=== PATIENT | male | born 1980 | race African-American/Black ===

== ENCOUNTER 2017-02-18 11:10 | Emergency (ER) | payer SELFPAY ==
[2017-02-18] MEDS ORDERED: Ketorolac Tromethamine 30 MG/ML VIAL ONE (12:29)
== END 2017-02-18 12:39 | disposition home or self-care (01) ==
LOC: ERS 11:10
DX: L72.3 Sebaceous cyst (principal); G40.909 Epilepsy, unspecified, not intractable, without status epilepticus; F17.210 Nicotine dependence, cigarettes, uncomplicated; Z79.899 Other long term (current) drug therapy
CPT/HCPCS: 96372; J1885

== ENCOUNTER 2017-09-05 22:51 | Emergency (ER) | payer SELFPAY ==
[2017-09-06] MEDS ORDERED: Lidocaine 1% w/Epinephrine 1:100K 20 ML VIAL ONE (00:41)
== END 2017-09-06 01:11 | disposition home or self-care (01) ==
LOC: ERS 22:51
DX: L02.214 Cutaneous abscess of groin (principal); G40.909 Epilepsy, unspecified, not intractable, without status epilepticus; F17.210 Nicotine dependence, cigarettes, uncomplicated
CPT/HCPCS: 10060; 99406; J2001

== ENCOUNTER 2017-09-06 22:14 | Emergency (ER) | payer SELFPAY ==
[2017-09-06 23:20] LABS: ALT (SGPT) 19 U/L (8-55); AST (SGOT) 19 U/L (5-34); Albumin 3.8 g/dL (3.5-5.0); Alkaline Phosphatase 129 U/L (40-150); Anion Gap 10 mmol/L (10-20); BUN (Urea Nitrogen) 15 mg/dL (8.9-20.6); Bilirubin, Total 0.4 mg/dL (0.2-1.2); Calc. Creatinine Clearance 0 mL/min (70-130); Carbon Dioxide 26 mmol/L (22-29); Chloride 107 mmol/L (98-107); Estimated GFR-MDRD Greater than 90; Glucose 123 mg/dL (70-105); Potassium 3.8 mmol/L (3.5-5.1); Protein, Total 6.8 g/dL (6.0-8.3); Sodium 139 mmol/L (136-145)
[2017-09-06 23:43] LABS: Band 2 % (5-11); Eosinophils 2 % (0-10); Hemoglobin 12.7 g/dL (14.0-18.0); Lymphocytes 11 % (21-51); MDiff Complete? YES; Mean Platelet Volume 6.5 fL (7.4-10.4); Metamyelocyte 1 % (0-0); Monocytes 10 % (0-10); Neutrophil 72 % (42-75); PLT Morphology Comment Appears Adequate; Platelet Count 260 thou/uL (130-400); RBC Distribution Width 12.9 % (11.5-14.5); RBC Morphology Normal; Reactive Lymphocytes 2 % (0-10); Red Blood Cell (RBC) Count 4.39 mill/uL (4.70-6.10); White Blood Cell (WBC) Count 21.6 thou/uL (4.8-10.8)
[2017-09-07] MEDS ORDERED: HYDROcodone/Acetaminophen 10/325 mg Tablet ONE (00:30)
[2017-09-07] MEDS ORDERED: Ketorolac Tromethamine 30 MG/ML VIAL ONE (00:30)
[2017-09-07] MEDS ORDERED: Lidocaine 1% w/Epinephrine 1:100K 20 ML VIAL ONE (00:30)
[2017-09-07] MEDS ORDERED: Lorazepam 2 MG/ML VIAL ONE (00:55)
[2017-09-07 01:10] LABS: Bilirubin Negative (Negative); Blood, Urine Negative (Negative); Clarity CLEAR (Clear); Glucose, Urine (Dipstick) Negative (Negative); Leukocyte Negative (Negative); Nitrite Negative (Negative); Protein, Urine (Dipstick) Negative (Neg-Trace); Specific Gravity, Urine 1.014 (1.002-1.036)
== END 2017-09-07 01:50 | disposition home or self-care (01) ==
LOC: ERS 22:14
DX: N49.2 Inflammatory disorders of scrotum (principal); G40.909 Epilepsy, unspecified, not intractable, without status epilepticus; F17.210 Nicotine dependence, cigarettes, uncomplicated
CPT/HCPCS: 36415; 54700; 80053; 81003; 85025; 96365; 96375; J1885; J2001; J2060; J3370

== ENCOUNTER 2018-01-01 16:41 | Emergency (ER) | payer SELFPAY ==
[2018-01-01] MEDS ORDERED: Dexamethasone 4 mg/ml Vial ONE (17:44)
== END 2018-01-01 17:50 | disposition home or self-care (01) ==
LOC: ERS 16:41
DX: M54.5 Low back pain (principal); G40.909 Epilepsy, unspecified, not intractable, without status epilepticus; F17.210 Nicotine dependence, cigarettes, uncomplicated
CPT/HCPCS: 99283; J1100

== ENCOUNTER 2018-01-11 14:16 | Emergency (ER) | payer SELFPAY ==
[2018-01-11 14:45] LABS: #Basophils 0.1 thou/uL (0.0-0.2); #Eosinphils 0.3 thou/uL (0.0-0.7); #Lymphocytes 2.7 thou/uL (1.20-3.40); #Monocytes 0.8 thou/uL (0.11-0.59); %Eosinophils 3.1 % (0.0-10.0); %Lymphocytes 30.4 % (21.0-51.0); %Monocytes 8.9 % (0.0-10.0); %Neutrophils 56.7 % (42.0-75.0); Hemoglobin 13.4 g/dL (14.0-18.0); Mean Corpuscular HGB CONC 32.3 g/dL (32.0-36.0); Mean Corpuscular Volume 86.5 fL (78.0-98.0); Mean Platelet Volume 6.8 fL (7.4-10.4); Platelet Count 258 thou/uL (130-400); RBC Distribution Width 12.4 % (11.5-14.5); Red Blood Cell (RBC) Count 4.78 mill/uL (4.70-6.10); White Blood Cell (WBC) Count 8.8 thou/uL (4.8-10.8)
[2018-01-11 15:05] LABS: ALT (SGPT) 13 U/L (8-55); AST (SGOT) 23 U/L (5-34); Albumin 3.9 g/dL (3.5-5.0); Alkaline Phosphatase 101 U/L (40-150); Anion Gap 11 mmol/L (10-20); BUN (Urea Nitrogen) 15 mg/dL (8.9-20.6); Bilirubin, Total 0.5 mg/dL (0.2-1.2); Calc. Creatinine Clearance 0 mL/min (70-130); Carbon Dioxide 21 mmol/L (22-29); Chloride 108 mmol/L (98-107); Estimated GFR-MDRD Greater than 90; Globulin 2.8 g/dL (2.4-3.5); Glucose 88 mg/dL (70-105); Potassium 4.1 mmol/L (3.5-5.1); Protein, Total 6.7 g/dL (6.0-8.3); Sodium 136 mmol/L (136-145)
[2018-01-11 15:09] LABS: CKMB 4.7 ng/mL (0-6.6); Troponin I Less than 0.010 ng/mL (< 0.028)
--- NOTE | 2018-01-11 15:32 | RAD ---
CHEST 1 VIEW: HISTORY: Chest pain. COMPARISON: 02/23/14. FINDINGS: Cardiac silhouette is magnified by projection. Pulmonary vasculature is unremarkable. Mediastinum i s midline. No lobar consolidation or evidence of pneumothorax. IMPRESSION: No active cardiopulmonary abnormalities are demonstrated. POS: [facility]
[2018-01-11] MEDS ORDERED: Ketorolac Tromethamine 30 MG/ML VIAL ONE (16:21)
== END 2018-01-11 17:19 | disposition home or self-care (01) ==
LOC: ERS 14:16
DX: R07.89 Other chest pain (principal); G40.909 Epilepsy, unspecified, not intractable, without status epilepticus; F17.210 Nicotine dependence, cigarettes, uncomplicated
CPT/HCPCS: 71045; 80053; 82553; 84484; 85025; 93005; 96374; J1885

== ENCOUNTER 2018-04-29 00:01 | Emergency (ER) | payer SELFPAY ==
[2018-04-29] MEDS ORDERED: Ketorolac Tromethamine 30 MG/ML VIAL ONE (02:04)
== END 2018-04-29 02:14 | disposition home or self-care (01) ==
LOC: ERS 00:01
DX: K13.0 Diseases of lips (principal); F17.210 Nicotine dependence, cigarettes, uncomplicated; G40.909 Epilepsy, unspecified, not intractable, without status epilepticus
CPT/HCPCS: 10061; 96372; J1885

== ENCOUNTER 2019-01-26 02:02 | Observation (INO) | payer SELFPAY ==
[2019-01-26] MEDS ORDERED: Ondansetron PF 4 MG/2 ML Vial ONE (02:19)
[2019-01-26] MEDS ORDERED: Lorazepam 2 MG/ML VIAL ONE (02:37)
[2019-01-26] MEDS ORDERED: Fosphenytoin Sodium 1,200 MG in Sodium Chloride 0.9% 50 ML IVPB SCH (02:45)
[2019-01-26 03:08] LABS: #Basophils 0.1 thou/uL (0.0-0.2); #Eosinphils 0.3 thou/uL (0.0-0.7); #Lymphocytes 3.1 thou/uL (1.20-3.40); #Monocytes 0.8 thou/uL (0.11-0.59); #Neutrophils 5.2 thou/uL (1.40-6.50); %Basophils 0.8 % (0.0-1.0); %Eosinophils 3.6 % (0.0-10.0); %Lymphocytes 32.3 % (21.0-51.0); %Monocytes 8.3 % (0.0-10.0); Hemoglobin 13.8 g/dL (14.0-18.0); Mean Corpuscular HGB CONC 32.9 g/dL (32.0-36.0); Mean Corpuscular Hemoglobin 28.3 pg (27.0-31.0); Mean Corpuscular Volume 85.9 fL (78.0-98.0); Mean Platelet Volume 6.4 fL (7.4-10.4); Platelet Count 263 thou/uL (130-400); RBC Distribution Width 12.3 % (11.5-14.5); White Blood Cell (WBC) Count 9.5 thou/uL (4.8-10.8)
[2019-01-26 03:35] LABS: ALT (SGPT) 13 U/L (8-55); AST (SGOT) 17 U/L (5-34); Albumin 3.7 g/dL (3.5-5.0); Alkaline Phosphatase 109 U/L (40-150); Anion Gap 9 mmol/L (10-20); BUN (Urea Nitrogen) 17 mg/dL (8.9-20.6); Bilirubin, Total 0.2 mg/dL (0.2-1.2); CK (CPK) 116 U/L (30-200); Calc. Creatinine Clearance 0 mL/min (70-130); Calcium 8.9 mg/dL (7.8-10.44); Carbon Dioxide 25 mmol/L (22-29); Chloride 106 mmol/L (98-107); Estimated GFR-MDRD 74; Globulin 2.7 g/dL (2.4-3.5); Glucose 118 mg/dL (70-105); Lipase 45 U/L (8-78); Potassium 3.9 mmol/L (3.5-5.1); Protein, Total 6.4 g/dL (6.0-8.3); Sodium 136 mmol/L (136-145)
[2019-01-26] MEDS ORDERED: Ondansetron ODT 4 MG TAB PO PRN (07:40)
[2019-01-26] MEDS ORDERED: Zolpidem Tartrate 5 MG TAB PO PRN (07:40)
--- NOTE | 2019-01-26 07:40 | CT ---
PRELIMINARY REPORT/[facility]/EMERGENCY AFTER HOURS PROCEDURE: PROCEDURE INFORMATION: Exam: CT Head Without Contrast Exam date and time: 01/26/2019 2:45 AM Clinical history: 38 years old, male; Patient HX: 38m brought in via EMS for multiple tonic-clonic se izures at home, witnessed by . Admits to h/o epilepsy since childhood TECHNIQUE: Imaging protocol: Computed tomography of the head without contrast. COMPARISON: No relevant prior studies available. FINDINGS: Brain: Normal. No hemorrhage. Unremarkable white matter. No mass effect. Ventricles: Normal. No ventriculomegaly. Bones/joints: Unremarkable. No acute fracture. Sinuses: Visualized sinuses are unremarkable. No fluid levels. Mastoid air cells: Visualized mastoid air cells are well aerated. Soft tissues: Unremarkable. IMPRESSION: No acute intracranial abnormality. Thank you for allowing us to participate in the care of your patient. Dictated and Authenticated by: Haile Padgett MD 01/26/2019 2:53 AM Central Time ([place] & [place]) FINAL REPORT EMERGENCY AFTER HOURS BRAIN CT WITHOUT IV CONTRAST: Date: 01/26/19 Time: 0246 hours IMPRESSION: No significant acute intracranial process. No mass or bleed. Stable from 07/11/15. Report in agreement with preliminary report given on-call by [facility]. POS: OFF
--- NOTE | 2019-01-26 08:26 | HP ---
PRIMARY CARE PHYSICIAN: No PCP. The patient was referred by the [facility] to the hospitalist program for seizure. The patient has had a seizure disorder since he was 2 years old. His last seizure was 1 month ago. He did not seek medical care. Last night, he had a headache, sharp pain in his chest later. He apparently had a seizure. He is currently oriented to person. He thinks he is in [place]. He gives the time is April of 2010. PAST MEDICAL HISTORY: Seizure disorder since 2 years old, history of heart murmur. MEDICATIONS: Currently, on no medicines. Quit his seizure medicines approximately 6 months ago because it made him feel like a zombie. ALLERGIES: NOTHING. PAST SURGICAL HISTORY: None. FAMILY HISTORY: He had an uncle, who was , who had alcoholic seizures. He has a cousin with epilepsy. SOCIAL HISTORY: . Smokes a half a pack a day. Drinks occasional alcohol. Admits to [facility]. REVIEW OF SYSTEMS: GENERAL: He has frequent headaches. No dizziness or fainting. EYES: He has blurred vision at times. No double vision. No flashing lights. EAR, NOSE, AND THROAT: No ear pain or drainage. No nasal bleeding. No trouble swallowing. CARDIAC: He had a sharp chest pain last night, brief. No orthopnea or paroxysmal nocturnal dyspnea. RESPIRATION: No cough, wheezing, or asthma. GASTROINTESTINAL: No nausea, vomiting, abdominal pain, diarrhea, or constipation. GENITOURINARY: No hematuria or dysuria. MUSCULOSKELETAL: No pain or swelling in his arms or legs. NEUROLOGICAL: History of seizures. SKIN: No bruising, bleeding, or rash. HEME/LYMPH: No tender or swollen lymph nodes under his arms, neck, or his groin. PSYCHIATRIC: No history of anxiety, depression, or psychiatric disease. PHYSICAL EXAMINATION: GENERAL: He is alert, pleasant, confused as to location. He thinks he is in [place]. He is actually in [place] and definitely confused as to time. His only current complaint is he wants to know where his is. VITAL SIGNS: Blood pressure 104/68, pulse 62, respirations 14, and afebrile at 97.6. HEAD, EYES, EARS, NOSE, AND THROAT: Revealed pupils are equal, round, and reactive to light. Extraocular movements are intact. Sclerae are white. Tympanic membranes are clear. Nose is clear. Oral mucous membranes are wet. Dental hygiene is good. NECK: Supple without jugular venous distention, adenopathy, or thyromegaly. CHEST: Clear to auscultation and percussion. HEART: Had a regular rate and rhythm. There is soft 2/6 systolic murmur. First and second heart sounds are clear. ABDOMEN: Soft. Bowel sounds are normal. There is no hepatosplenomegaly. No mass. No rebound. EXTREMITIES: Reveal no cyanosis, clubbing, or edema. PULSES: Carotid, radial, and femoral and dorsalis pedis pulses intact. SKIN: Warm and dry. Multiple tattoos. No bruising or rash. HEME/LYMPH: No tender or swollen lymph nodes in axilla, inguinal, or cervical area. NEUROLOGICAL: Cranial nerves II through XII are intact. Deep tendon reflexes symmetric. Moves all extremities. Toes downgoing. Rapid alternating movements normal. IMAGING STUDIES: CT of the brain reveals no intracranial abnormality reviewed by me. EKG normal, reviewed by me. LABORATORY DATA: Comprehensive metabolic profile shows a blood sugar of 118, otherwise normal. Troponin was normal. CBC is normal except for a hemoglobin borderline of 13.8. ADMITTING DIAGNOSES: 1. Seizure disorder with recent seizure. 2. Noncompliance, not on medications. 3. Encephalopathy, postictal. 4. THC abuse. 5. Tobacco abuse. PLAN: The patient has been loaded with Dilantin. However, since he complains of not feeling clear in his head on Dilantin, we will switch to Keppra. MRI of the brain will be obtained. Drug screen will be obtained. Prolactin level will be obtained because of his history of his seizure disorder. I do not see any necessity at this time of an EEG or a Neurology consult unless something unusual shows up on his MRI. Job ID: [id number]
[2019-01-26] MEDS: levETIRAcetam 500 MG TAB PO SCH ×2 (08:38→20:02)
[2019-01-26] MEDS ORDERED: Gadobenate Dimeglumine 529 MG/1 ML (20ML VIAL) ONE (09:06)
[2019-01-26 10:53] VITALS: BMI 18.4
--- NOTE | 2019-01-26 11:35 | MRI ---
EXAM: MRI of the brain without and with contrast HISTORY: Seizure disorder COMPARISON: None TECHNIQUE: Multiplanar multisequence MR images were obtained of the brain without and with IV contras t. FINDINGS: The brain demonstrates normal signal intensity on all obtained sequences. No restricted diffusion. No abnormal enhancement. No hydronephrosis. No extra-axial fluid collection or intracranial hemorrhage. Thin cuts through the temporal lobes shows a symmetric appearance of the hippocampi. The expected flow voids are present. Corpus callosum, pituitary, and craniocervical junction are within normal limits. The calvarium and overlying soft tissues are unremarkable. The paranasal sinuses and mastoid air cells are well aerated. IMPRESSION: No significant intracranial abnormality.
[2019-01-26 14:35] LABS: Amphetamine Detected (NotDetected); Barbiturates Screen Detected (NotDetected); Benzodiazepine Screen Detected (NotDetected); Cocaine Metabolite Screen Not Detected (NotDetected); Medtox Control Line Valid? VALID (VALID); Medtox Reader # READER 4; Methadone Not Detected (NotDetected); Methamphetamine Not Detected (NotDetected); Opiate Screen Not Detected (NotDetected); Oxycodone Screen Not Detected (NotDetected); Phencyclidine (PCP) Not Detected (NotDetected); THC/Cannabinoid Screen Detected (NotDetected); Tricyclic Screen Not Detected (NotDetected)
[2019-01-26] MEDS: Acetaminophen 325 MG TAB PO PRN (20:03)
[2019-01-27 07:56] VITALS: BP 101/72; TEMP 97.4
[2019-01-27] MEDS: Acetaminophen 325 MG TAB PO PRN (08:15)
[2019-01-27] MEDS: levETIRAcetam 500 MG TAB PO SCH (08:15)
--- NOTE | 2019-01-28 02:20 | DIS ---
DATE OF ADMISSION: 01/26/2019 DATE OF DISCHARGE: 01/27/2019 PRIMARY CARE PHYSICIAN: None. DISPOSITION: Discharged home. FINAL DIAGNOSES: Seizure disorder with noncompliance and seizure, encephalopathy, THC abuse, noncompliance with medications. DISCHARGE MEDICATIONS: Keppra 500 mg p.o. b.i.d. ALLERGIES: NO KNOWN DRUG ALLERGIES. DIET: As tolerated. CODE STATUS: Full. PENDING AT TIME OF DISCHARGE: Nothing. HOSPITAL COURSE: The patient was brought to the emergency room post seizure. He was encephalopathic. He was admitted to observation basis to the Hospitalist Service. His drug screen revealed THC and amphetamines. He was initially treated with Dilantin. He was switched over to Keppra 500 mg p.o. b.i.d. He has had no further seizure activity. He is awake, alert. His CBC was unremarkable as was his comprehensive metabolic profile. Prolactin was 8. He is being discharged on the above medicine. He has been instructed to find a PCP for followup in 1 week. He has been instructed not to drive for 6 months. Job ID: [id number]
--- NOTE | 2019-02-03 09:40 | EEG ---
Referring Physician: Katherine BURCH EEG # [id number] TEST TYPE: ROUTINE PORTABLE INPATIENT REPORT: AN EEG USING THE INTERNATIONAL TEN-TWENTY SYSTEM OF ELECTRODE PLACEMENT WAS PERFORMED. The waking background is a 9 hertz alpha frequency. The patient became drowsy, but no sleep was seen. Photic stimulation was unremarkable. No epileptiform features were present. IMPRESSION: THIS IS A NORMAL AWAKE AND DROWSY EEG. Professor Of Communication And Writing: [employer] Product Specialist: [email or web address].[email or web address] DONATO
== END 2019-01-27 11:16 | disposition home or self-care (01) ==
LOC: ERS 02:02 → 2SE 04:20
PROVIDERS: ADMIT Hospitalist; ATTEND Hospitalist
DX: G40.409 Other generalized epilepsy and epileptic syndromes, not intractable, without status epilepticus (principal); G93.49 Other encephalopathy; F12.10 Cannabis abuse, uncomplicated; F17.210 Nicotine dependence, cigarettes, uncomplicated; Z91.14 Patient's other noncompliance with medication regimen; Z79.899 Other long term (current) drug therapy
CPT/HCPCS: 36415; 70450; 70553; 80053; 80306; 82550; 83690; 84146; 84484; 85025; 90471; 90732; 93005; 95816; 95819; 96365; 96375; A9577; G0009; G0378; J2060; J2405; Q2009

== ENCOUNTER 2020-03-14 00:17 | Emergency (ER) | payer BC, SELFPAY ==
--- NOTE | 2020-03-14 08:15 | RAD ---
EXAM: 3 views of the right hand COMPARISON: None HISTORY: Hand pain after punching a wall one week ago FINDINGS: 3 views of the hand shows no evidence of acute fracture or dislocation. No degenerative silva nges are seen. Mild dorsal soft tissue swelling is present. IMPRESSION: No evidence of acute osseous abnormality.
== END 2020-03-14 01:34 | disposition home or self-care (01) ==
LOC: ERS 00:17
DX: S63.91XA Sprain of unspecified part of right wrist and hand, initial encounter (principal); G40.909 Epilepsy, unspecified, not intractable, without status epilepticus; F17.210 Nicotine dependence, cigarettes, uncomplicated; W22.8XXA Striking against or struck by other objects, initial encounter; Z79.899 Other long term (current) drug therapy

== ENCOUNTER 2020-07-24 16:57 | Emergency (ER) | payer BC ==
[2020-07-24] MEDS ORDERED: Ketorolac Tromethamine 30 MG/ML VIAL ONE (19:43)
[2020-07-24] MEDS ORDERED: Metoclopramide HCl 10 MG/2 ML VIAL ONE (19:43)
[2020-07-24] MEDS ORDERED: levETIRAcetam 500 MG/100 ML PREMIX BAG ONE (19:43)
[2020-07-24] MEDS ORDERED: diphenhydrAMINE 50 MG/ML VIAL ONE (19:43)
[2020-07-24] MEDS ORDERED: Acetaminophen 500 MG TAB ONE (19:46)
[2020-07-24] MEDS ORDERED: Magnesium 2 GM/50 ML BAG (IN WATER) ONE (19:47)
[2020-07-24] MEDS ORDERED: levETIRAcetam 500 MG TAB PO SCH (20:15)
== END 2020-07-24 21:05 | disposition home or self-care (01) ==
LOC: ERS 16:57
DX: G40.909 Epilepsy, unspecified, not intractable, without status epilepticus (principal); R51.9 Headache, unspecified; F17.210 Nicotine dependence, cigarettes, uncomplicated
CPT/HCPCS: 94760; 96365; 96375; J1200; J1885; J1953; J2765; J3475